=== PATIENT | female | born 1985 | race Caucasian/White ===

== ENCOUNTER 2018-04-30 11:16 | Emergency (ER) | payer OTHER ==
[2018-04-30 11:36] LABS: Bilirubin Negative (Negative); Blood, Urine Moderate (Negative); Glucose, Urine (Dipstick) Negative (Negative); Leukocyte Negative (Negative); Nitrite Negative (Negative); Protein, Urine (Dipstick) Trace mg/dL (Neg-Trace); Urobilinogen 0.2 mg/dL (0.2-1.0)
[2018-04-30 11:37] LABS: Clarity Hazy (Clear); Specific Gravity, Urine 1.025 (1.002-1.036)
[2018-04-30 11:41] LABS: Bacteria/HPF 4+ HPF (None Seen); Pregnancy Test - Urine (BHCG) Negative (Negative); Pregu Control Background? CLEAR/WHITE (CLR/WHITE); Pregu Control Bar Appear? YES (CONTROL BAR); Specific Gravity 1.025 (1.002-1.036); WBC/HPF 0-3 HPF (0-3)
[2018-04-30] MEDS ORDERED: Promethazine HCl 25 MG/ML VIAL ONE (11:41)
[2018-04-30 12:08] LABS: #Basophils 0.1 thou/uL (0.0-0.2); #Lymphocytes 2.2 thou/uL (1.20-3.40); #Monocytes 1.2 thou/uL (0.11-0.59); #Neutrophils 13.2 thou/uL (1.40-6.50); %Basophils 0.5 % (0.0-1.0); %Eosinophils 0.2 % (0.0-10.0); %Neutrophils 79.4 % (42.0-75.0); Mean Corpuscular HGB CONC 34.1 g/dL (32.0-36.0); Mean Corpuscular Volume 85.1 fL (78.0-98.0); Mean Platelet Volume 8.4 fL (7.4-10.4); Platelet Count 240 thou/uL (130-400); RBC Distribution Width 11.5 % (11.5-14.5); Red Blood Cell (RBC) Count 4.47 mill/uL (4.20-5.40); White Blood Cell (WBC) Count 16.7 thou/uL (4.8-10.8)
[2018-04-30 12:19] LABS: ALT (SGPT) 17 U/L (8-55); AST (SGOT) 14 U/L (5-34); Albumin 3.3 g/dL (3.5-5.0); Alkaline Phosphatase 48 U/L (40-150); Anion Gap 13 mmol/L (10-20); BUN (Urea Nitrogen) 10 mg/dL (7.0-18.7); Bilirubin, Total 0.4 mg/dL (0.2-1.2); Calc. Creatinine Clearance 0 mL/min (70-130); Calcium 8.8 mg/dL (7.8-10.44); Carbon Dioxide 20 mmol/L (22-29); Chloride 105 mmol/L (98-107); Estimated GFR-MDRD Greater than 90; Globulin 2.6 g/dL (2.4-3.5); Glucose 112 mg/dL (70-105); Protein, Total 5.9 g/dL (6.0-8.3); Sodium 134 mmol/L (136-145)
--- NOTE | 2018-04-30 13:33 | ULT ---
PELVIC ULTRASOUND: HISTORY: Egg retrieval post IVF treatment. Pain and fullness. COMPARISON: None. TECHNIQUE: Transabdominal and endovaginal imaging of the pelvis is performed. FINDINGS: Uterus is identified, without myometrial masses. Uterus measures 3.6 x 4.7 x 7.6 cm. Homogeneous en dometrium with a diameter of 0.9 cm. There appears to be free fluid in the pelvis. Both ovaries are markedly enlarged. The right ovary measures 10.8 x 7.0 x 13.0 cm. The left ovary m easures 11.7 x 6.8 x 12.0 cm. There are multiple cysts throughout the ovaries. Some of these cysts may be complex and have septations. OVARIAN DOPPLER: Vascular flow to both ovaries. IMPRESSION: Bilaterally enlarged ovaries with complex and simple cysts. Ovarian prominence is presumed to be due to stimulating hormones for a patient who has undergone egg retrieval in the last 2 days. POS: [facility]
== END 2018-04-30 13:38 | disposition home or self-care (01) ==
LOC: SCSER 11:16
DX: N98.1 Hyperstimulation of ovaries (principal); Z79.899 Other long term (current) drug therapy; Z79.84 Long term (current) use of oral hypoglycemic drugs
CPT/HCPCS: 76856; 80053; 81003; 81015; 81025; 85025; 87086; 96365; 96366; J2550

== ENCOUNTER 2019-09-20 08:55 | Outpatient (CLI) | payer OTHER ==
--- NOTE | 2019-09-20 10:11 | CT ---
CT NECK SOFT TISSUES WITH CONTRAST: Date: 09/20/2019 HISTORY: 34-year-old female with ICD-10: R22.1 neck mass. FINDINGS: There is no cervical lymphadenopathy, solid mass, or cystic lesion. No thyromegaly. Trachea and laryn x appear normal. 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 Cervical spine is normal. No osseous abnormality identified. IMPRESSION: Normal. POS: [facility]
[2019-09-20] MEDS ORDERED: Iopamidol 370 76% 100 ML VIAL ONE (15:17)
== END 2019-09-20 08:56 | disposition home or self-care (01) ==
LOC: BICCT 08:55
PROVIDERS: ATTEND Specialist
DX: R22.1 Localized swelling, mass and lump, neck (principal)
CPT/HCPCS: 70491; Q9967

== ENCOUNTER 2019-11-16 14:50 | Outpatient (CLI) | payer OTHER ==
--- NOTE | 2019-11-16 15:18 | ULT ---
VENOUS DOPLER ULTRASOUND OF THE LEFT LOWER EXTREMITY: HISTORY: Left leg pain. TECHNIQUE: Bonner scale ultrasound with color flow and spectral Doppler imaging of the deep venous system of the l eft lower extremity was performed. FINDINGS: There is good flow, compression, and augmentation noted in the left common femoral, femoral, deep fem oral, popliteal, posterior tibial, and greater saphenous veins. IMPRESSION: No evidence of deep vein thrombosis in the left lower extremity. POS: [facility]
== END 2019-11-16 14:51 | disposition home or self-care (01) ==
LOC: SCSULT 14:50
PROVIDERS: ATTEND Nurse Practitioner Family
DX: M79.605 Pain in left leg (principal); I78.1 Nevus, non-neoplastic